=== PATIENT | female | born 1985 | race Caucasian/White ===

== ENCOUNTER 2016-09-08 02:53 | Inpatient (IN) | payer OTHER ==
--- NOTE | ~2016-09-08 | PN ---
Unit #: [id number] #: [id number] Patient: PARTH FERREIRA [id number] [facility] [address] [place] [address] [id number] MR#: [id number] NAME: PARTH FERREIRA. ROOM: 13 Age: 30 Sex: F Admission Date: 09/08/2016 : 1985 Attending Physician: Cricket Loera M.D. Admitting Physician: Cricket Loera M.D. Primary Care Physician: Primary Care Physician Yana COTA PROGRESS NOTES DATE 09/11/2016 DISCUSSION The patient continues to complain of racing thoughts but states that she is a bit sedated with initiation of Seroquel. We will leave her dose at its current level allowing the patient to acclimate to sedative side effects and hope to titrate upward as she continues to complain of racing thoughts and severe anxiety as well as her psychosis appears to have cleared at this point but there still seems evidence with regards to racing thoughts of a bipolar manic episode. Dictated by... Cricket Loera M.D. CB/abdon TD: 09/12/2016 03:22 JOB #: [id number] BEATA PROGRESS NOTES Page 1 of 1 X Cricket Loera MD PROGRESS NOTE
--- NOTE | ~2016-09-08 | PN ---
Unit #: [id number] #: [id number] Patient: PARTH FERREIRA [id number] [facility] [address] [place] [address] [id number] MR#: [id number] NAME: PARTH FERREIRA. ROOM: P113 Age: 30 Sex: F Admission Date: 09/08/2016 : 1985 Attending Physician: Cricket Loera M.D. Admitting Physician: Cricket Loera M.D. Primary Care Physician: Primary Care Physician Yana COTA PROGRESS NOTES DATE 09/10/2016 DISCUSSION The patient continues to complain of severe anxiety. It is my concern now that the patient's symptoms may not be entirely related to her methamphetamine abuse and I will go ahead and start the patient on Seroquel 50 mg t.i.d. Dictated by... Cricket Loera M.D. CB/chanel TD: 09/10/2016 15:31 JOB #: [id number] BEATA PROGRESS NOTES Page 1 of 1 X Cricket Loera MD X PROGRESS NOTE
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
--- NOTE | ~2016-09-08 | HP ---
Unit #: [id number] #: [id number] Patient: CONSTANCE FERREIRA [id number] [place] [address] [id number] I MR#: [id number] NAME: CONSTANCE FERREIRA. ROOM: P113 Age: 30 Sex: F Admission Date: 09/08/2016 : 1985 Attending Physician: Cricket Loera M.D. Admitting Physician: Cricket Loera M.D. Primary Care Physician: Primary Care Physician No HISTORY AND PHYSICAL HISTORY OF PRESENT ILLNESS Constance is a 30 year old admitted to [address] [place] [address] with psychotic behavior. PAST MEDICAL HISTORY 1. Obesity. 2. Hyperthyroidism. a. Partial thyroidectomy. PAST SURGICAL HISTORY As above. ALLERGIES Sulfa. SOCIAL HISTORY Smokes 2 pack per day. Denies alcohol. Admits to a history of illicit substance abuse to include methamphetamine, heroin and history of abusing benzodiazepines. FAMILY HISTORY Medically noncontributory. REVIEW OF SYSTEMS She does not answer all questions appropriately. There were no reports of nausea, vomiting or diarrhea. She has had no cough or increased temperature. CURRENT MEDICATIONS 1. Zyprexa Zydis 10 mg q. 8 hours p.r.n. 2. Vistaril 50 mg q.i.d. 3. Nicotine patch 21 mg daily. 4. Milk of Magnesia p.r.n. 5. Maalox p.r.n. 6. Tylenol p.r.n. PHYSICAL EXAMINATION GENERAL: Alert, well-nourished, in no apparent distress. VITAL SIGNS: Blood pressure 118/84, heart rate 88, respirations 16, temperature 98.6. SKIN: Warm and dry without rash or lesion. HEENT: Normocephalic. TMs not viewed. Oral and nasal passages clear. Conjunctivae clear. PERRLA. EOMs intact. NECK: Supple without lymphadenopathy or thyromegaly. Unit #: [id number] #: [id number] Patient: CONSTANCE FERREIRA HEART: Regular rate and rhythm without murmur. LUNGS: Clear. ABDOMEN: Soft, nontender. : Not done. EXTREMITIES: No evidence of cyanosis, clubbing or edema. Moves all without focal deficit. NEUROLOGICAL: Unable to complete extended exam. She does move all extremities without focal deficit. Hand neighborhood planner is equal and gait is normal. IMPRESSION Psychiatric admission. RECOMMENDATIONS PSYCHIATRIC: Per psychiatrist. MEDICAL: See no contraindication to participate in facility's activities. MEDICAL PROGNOSIS Good. MEDICAL CONDITION Stable. Dictated by... Eliz Evangelista P.A.-C. for Cornelio Matute/chanel TD: 09/08/2016 21:39 JOB #: [id number] HISTORY AND PHYSICAL Page 1 of 1 X Eliz Evangelista X HISTORY AND PHYSICAL
--- NOTE | ~2016-09-08 | PN ---
Unit #: [id number] #: [id number] Patient: PARTH FERREIRA [id number] [facility] [address] [place] [address] [id number] MR#: [id number] NAME: PARTH FERREIRA. ROOM: 13 Age: 30 Sex: F Admission Date: 09/08/2016 : 1985 Attending Physician: Cricket Loera M.D. Admitting Physician: Cricket Loera M.D. Primary Care Physician: Primary Care Physician Yana COTA PROGRESS NOTES DATE 09/09/2016 DISCUSSION The patient was briefly transferred to the [facility] unit but became paranoid and angry and threw a container of Gatorade prompting her return to this facility in seclusion and restraint and p.r.n. medication. Patient remains paranoid and anxious when seen today. At this point, I continue to feel as though her symptoms are methamphetamine induced and will continue with only p.r.n. Zydis at this point as the patient is voicing no overt psychotic symptoms today. Dictated by... Cricket Loera M.D. CB/chanel TD: 09/09/2016 15:06 JOB #: [id number] BEATA PROGRESS NOTES Page 1 of 1 X Cricket Loera MD PROGRESS NOTE
--- NOTE | ~2016-09-08 | DS ---
Unit #: [id number] #: [id number] Patient: PARTH FERREIRA [id number] [facility] [address] [place] [address] [id number] I MR#: [id number] NAME: PARTH FERREIRA. ROOM: [facility] Age: 30 Sex: F Admission Date: 09/08/2016 : 1985 Discharge Date: 09/12/2016 Attending Physician: Cricket Loera M.D. Primary Care Physician: Primary Care Physician No DISCHARGE SUMMARY REASON FOR ADMISSION The patient is a 30-year-old white female, admitted in what appears to have been a stimulant-induced psychosis. HOSPITAL COURSE The patient was admitted to the [address] [place] [address] unit and placed on suicide precautions. She required several doses of p.r.n. Geodon initially during her stay in the hospital, but calmed considerably. An attempted transfer to the [address] [place] [address] unit to address the patient's substance use issues was unsuccessful as the patient became angry and threw a cooler of Gatorade there. On 09/10/2016, the patient seen to be sustaining complaints of anxiety and racing thoughts which were thought possibly not to be entirely related to her methamphetamine use history. Accordingly, she was begun on Seroquel 50 mg t.i.d. and tolerated this medication well. On 09/11/2016, she appeared to improve and on 09/12/2016, she requested discharge as the patient had been accepted for treatment at [facility] in [place], [place] the following day and as per her request, discharge was ordered. FINAL DIAGNOSIS Psychostimulant use disorder with intoxication and perceptual disturbance. DISPOSITION ON DISCHARGE The patient is discharged on the following medications; Seroquel 50 mg t.i.d. for psychosis. DISCHARGE INSTRUCTIONS No dietary or physical restrictions were placed on the patient at the time of discharge. FOLLOWUP She will follow up through the auspices of [facility] in [place], [place]. PROGNOSIS Her prognosis is considered fair. Dictated by... Cricket Loera M.D. HAYDEE/mckennal TD: 09/13/2016 02:59 Unit #: [id number] #: [id number] Patient: PARTH FERREIRA JOB #: [id number] DISCHARGE SUMMARY Page 1 of 1 X Cricket Loera MD DISCHARGE SUMMARY
[2016-09-08 10:01] LABS: BASOPHIL% 0.4 % (0-2.5); EOSINOPHIL# 0.1 X10e3 (0-0.7); EOSINOPHIL% 1.5 % (0.0-7.0); HEMATOCRIT 46.1 % (35.0-45.0); LYMPHOCYTE# 4.8 X10e3 (1.0-3.5); LYMPHOCYTE% 48.6 % (17.0-45.0); MEAN CELL VOLUME 91.9 FL (83-96); MEAN CORPUSCULAR HGB CONC 32.6 g/dL (30-36); MONOCYTE# 0.6 X10e3 (0-1.0); MONOCYTE% 6.2 % (3.0-12.0); NEUTROPHIL# 4.2 X10e3 (1.5-7.1); NEUTROPHIL% 43.3 % (40-75); PLATELET COUNT 233 X10e3 (140-420); RED BLOOD COUNT 5.02 X10e (3.90-5.30); RED CELL DISTRIBUTION WIDTH 13.1 % (11.0-15.5); WHITE BLOOD COUNT 9.8 X10e3 (4.0-10.5)
[2016-09-08 10:08] LABS: DIFF IND NO
[2016-09-08 10:31] LABS: THYROID STIMULATING HORMONE 1.38 uIU/ml (0.34-5.60)
[2016-09-08 10:38] LABS: FREE THYROXIN (T4) 0.99 ng/dL (0.58-1.64)
[2016-09-08 10:49] LABS: ALBUMIN SERUM 4.4 g/dL (3.5-5.0); BILIRUBIN,TOTAL 0.4 mg/dL (0.2-2.0); CALCIUM SERUM 9.5 mg/dL (8.4-10.2); CREATININE SERUM 0.5 mg/dL (0.6-1.4); GLOM FILT RATE Estimated 130.8 mL/min (>60); PROTEIN TOTAL SERUM 6.7 g/dL (6.0-8.3)
[2016-09-14 11:03] LABS: HA AB IGM (HEPPAN) Nonreactive (()); HB CORE AB IGM (HEPPAN) Nonreactive (Nonreactive); HB S AG (HEPPAN) Nonreactive (Nonreactive); HEP C AB (HEPPAN) Reactive (Nonreactive)
== END 2016-09-12 15:04 | disposition home or self-care (01) | DRG 897 ==
LOC: P1S 02:53 → P2S 15:15 → P1S 17:11
PROVIDERS: Specialist
DX: F15.222 Other stimulant dependence with intoxication with perceptual disturbance (principal); F11.10 Opioid abuse, uncomplicated; E05.90 Thyrotoxicosis, unspecified without thyrotoxic crisis or storm; Z59.0 Homelessness; E66.9 Obesity, unspecified; F17.210 Nicotine dependence, cigarettes, uncomplicated; Z88.2 Allergy status to sulfonamides; F41.9 Anxiety disorder, unspecified
CPT/HCPCS: 80053; 80074; 84439; 84443; 84703; 85025; 87522; 87806; J3486

== ENCOUNTER 2016-11-07 15:40 | Inpatient (IN) | payer OTHER ==
--- NOTE | ~2016-11-07 | HP ---
Unit #: [id number] #: [id number] Patient: CONSTANCE FERREIRA [id number] [place] [address] [id number] I MR#: [id number] NAME: CONSTANCE FERREIRA. ROOM: P203 Age: 30 Sex: F Admission Date: 11/07/2016 : 1985 Attending Physician: Cricket Loera M.D. Admitting Physician: Cricket Loera M.D. Primary Care Physician: Primary Care Physician No HISTORY AND PHYSICAL HISTORY OF PRESENT ILLNESS Constance is a 30 year old admitted to [address] [place] [address] because of her polysubstance abuse which includes IV heroin and methamphetamine. PAST MEDICAL HISTORY 1. Long history of polysubstance abuse to include IV drugs 2. Hepatitis C PAST SURGICAL HISTORY 1. T & A 2. Partial thyroidectomy ALLERGIES Sulfa SOCIAL HISTORY Smokes one pack per day. Drinks alcohol rarely, admits to a history of poly illicit substance abuse to include IV heroin and methamphetamine. FAMILY HISTORY Medically noncontributory. REVIEW OF SYSTEMS CONSTITUTIONAL: No fever or chills. HEENT: Denies any sore throat, ear pain or runny nose. CARDIOVASCULAR: Denies chest pain, irregular heart rhythm or palpitations. CHEST: Denies shortness of breath or cough. No hemoptysis. GASTROINTESTINAL: Denies nausea, vomiting, diarrhea or chronic constipation. ENDOCRINE: Denies history of increased thirst or urination. No recent significant weight loss or gain. GENITOURINARY: Denies dysuria, frequency, or hematuria. SKIN: Denies any rashes. HEMATOLOGIC: Denies history of increased bleeding or bruising. MUSCULOSKELETAL: Denies any hot, swollen joints. No generalized muscle pain. NEUROLOGIC: Denies problems with vision or speech. No frequent, severe headaches. No numbness, tingling or weakness in any extremities. Denies loss of bladder or bowel control. CURRENT MEDICATIONS 1. Geodon 40 mg b.i.d. Unit #: [id number] #: [id number] Patient: CONSTANCE FERREIRA 2. Nicotine patch 21 mg q day 3. Milk of Magnesia p.r.n. 4. Maalox p.r.n. 5. Tylenol p.r.n. PHYSICAL EXAMINATION GENERAL: Alert, well-nourished, in no apparent distress. VITAL SIGNS: Blood pressure 113/74, heart rate 96, respirations 16, temperature 98.6. WEIGHT: 130 pounds. HEIGHT: 5'2". SKIN: Warm and dry without rash or lesion. HEENT: Normocephalic. TMs not viewed. Oral and nasal passages clear. Conjunctivae clear. Pupils equal, round and reactive to light and accommodation. Extraocular movements intact. NECK: Supple without lymphadenopathy or thyromegaly. HEART: Regular rate and rhythm without murmur. LUNGS: Clear. ABDOMEN: Soft, nontender. : Not done. EXTREMITIES: No evidence of cyanosis, clubbing or edema. Moves all extremities without focal deficit. NEUROLOGICAL: Grossly within normal limits. Cranial Nerves: II: Visual cantu are intact. III, IV AND : Extraocular movements are intact. Pupils are equal, round and reactive to light. V: Facial sensation is grossly normal. VII: Facial movements and expression are normal. VIII: Auditory acuity grossly intact. IX, X: Uvula is midline. Phonation is normal. XI: Patient shrugs shoulders and turns head normally. XII: Tongue protrudes in the midline. Sensory and Motor Function: Sensory and motor sensation is grossly normal. Motor: moves all extremities well. Coordination: Gait is normal. Deep Tendon Reflexes: Intact. IMPRESSION Psychiatric admission RECOMMENDATIONS PSYCHIATRIC: Per psychiatrist. MEDICAL: I see no contraindications to participating in facility's activities. MEDICAL PROGNOSIS Good. MEDICAL CONDITION Stable. Dictated by... Eliz Evangelista P.A.-C. for Cornelio Matute/abdon Unit #: [id number] #: [id number] Patient: CONSTANCE FERREIRA TD: 11/08/2016 21:05 JOB #: [id number] HISTORY AND PHYSICAL Page 1 of 1 X Eliz Evangelista HISTORY AND PHYSICAL
--- NOTE | ~2016-11-07 | PN ---
Unit #: [id number] #: [id number] Patient: PARTH FERREIRA [id number] [facility] [address] [place] [address] [id number] MR#: [id number] NAME: PARTH FERREIRA. ROOM: P205 Age: 30 Sex: F Admission Date: 11/07/2016 : 1985 Attending Physician: Cricket Loera M.D. Admitting Physician: Cricket Loera M.D. Primary Care Physician: Primary Care Physician Yana COTA PROGRESS NOTES DATE 11/10/2016 DISCUSSION The patient reports some improvement in her auditory hallucinations and seems brighter today. It would appear that with the rapidity of resolution of symptoms we are seeing that her symptoms were likely methamphetamine induced. Dictated by... Cricket Loera M.D. CB/chanel TD: 11/10/2016 16:42 JOB #: [id number] [facility] PROGRESS NOTES Page 1 of 1 X Cricket Loera MD X PROGRESS NOTE
--- NOTE | ~2016-11-07 | DS ---
Unit #: [id number] #: [id number] Patient: PARTH FERREIRA [id number] [facility] [address] [place] [address] [id number] MR#: [id number] NAME: PARTH FERREIRA. ROOM: [facility] Age: 30 Sex: F Admission Date: 11/07/2016 : 1985 Discharge Date: 11/11/2016 Attending Physician: Cricket Loera M.D. Primary Care Physician: Primary Care Physician No DISCHARGE SUMMARY REASON FOR ADMISSION The patient is a 30-year-old white female, admitted to the [address] [place] [address] unit with increasing paranoia related to a history of methamphetamine abuse. HOSPITAL COURSE The patient was admitted to the [facility] and placed on suicide precautions. She was begun on Seroquel with dosage increased to 100 mg t.i.d. daily. Levothyroxine was also continued. The patient's symptoms resolved rather rapidly and by 11/11/2016, the patient was in bright spirits with no recurrence of psychotic symptoms. The importance of abstinence from methamphetamines was discussed with the patient. FINAL DIAGNOSES Methamphetamine use disorder with intoxication and delusions, resolved. DISPOSITION ON DISCHARGE The patient is discharged on the following medications: Seroquel 100 mg t.i.d. for mood stabilization. DISCHARGE INSTRUCTIONS No dietary or physical restrictions were placed upon the patient at the time of discharge. FOLLOWUP Followup will take place in the intensive outpatient program provided by this facility. PROGNOSIS The patient's prognosis is considered fair. Dictated by... Cricket Loera M.D. CB/ubaldo TD: 11/11/2016 19:31 JOB #: [id number] Unit #: [id number] #: [id number] Patient: PARTH FERREIRA DISCHARGE SUMMARY Page 1 of 1 X Cricket Loera MD X DISCHARGE SUMMARY
--- NOTE | ~2016-11-07 | PN ---
Unit #: [id number] #: [id number] Patient: PARTH FERREIRA [id number] [facility] [address] [place] [address] [id number] MR#: [id number] NAME: PARTH FERREIRA. ROOM: P203 Age: 30 Sex: F Admission Date: 11/07/2016 : 1985 Attending Physician: Cricket Loera M.D. Admitting Physician: Cricket Loera M.D. Primary Care Physician: Primary Care Physician Yana COTA PROGRESS NOTES DATE 11/09/2016 DISCUSSION The patient has required p.r.n. Thorazine this morning and continuing to complain of severe anxiety, depression and psychotic symptoms. She may in fact be in a manic phase of bipolar. Otherwise, continues to suspect that most of her symptoms are methamphetamine related. I will, however, restart the patient's Seroquel as per her request with a significant dosage increase to 100 mg t.i.d. Dictated by... Cricket Loera M.D. HAYDEE/chanel TD: 11/09/2016 15:05 JOB #: [id number] BEATA PROGRESS NOTES Page 1 of 1 X Cricket Loera MD PROGRESS NOTE
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
[2016-11-08 09:35] LABS: BASOPHIL# 0.1 X10e3 (0-0.3); BASOPHIL% 0.7 % (0-2.5); EOSINOPHIL# 0.3 X10e3 (0-0.7); EOSINOPHIL% 2.6 % (0.0-7.0); HEMATOCRIT 43.6 % (35.0-45.0); HEMOGLOBIN 14.4 gm/dL (12.0-16.0); LYMPHOCYTE# 4.4 X10e3 (1.0-3.5); LYMPHOCYTE% 38.7 % (17.0-45.0); MEAN CELL VOLUME 87.8 FL (83-96); MEAN PLATELET VOLUME 8.8 FL (6.5-11.5); MONOCYTE# 0.9 X10e3 (0-1.0); NEUTROPHIL# 5.7 X10e3 (1.5-7.1); PLATELET COUNT 316 X10e3 (140-420); RED BLOOD COUNT 4.96 X10e (3.90-5.30); RED CELL DISTRIBUTION WIDTH 13.1 % (11.0-15.5); WHITE BLOOD COUNT 11.4 X10e3 (4.0-10.5)
[2016-11-08 09:48] LABS: DIFF IND NO
[2016-11-08 10:59] LABS: ALBUMIN SERUM 3.8 g/dL (3.5-5.0); BILIRUBIN,TOTAL 0.6 mg/dL (0.2-2.0); CALCIUM SERUM 9.1 mg/dL (8.4-10.2); CREATININE SERUM 0.7 mg/dL (0.6-1.4); GLOM FILT RATE Estimated 117.1 mL/min (>60); POTASSIUM 3.8 mmol/L (3.5-5.1)
[2016-11-08 14:42] LABS: URINE APPEARANCE TURBID; URINE BILIRUBIN NEG (NEG); URINE BLOOD TRACE (NEG); URINE COLOR YELLOW; URINE GLUCOSE NEG (NEG); URINE KETONE NEG (NEG); URINE LEUKOCYTE ESTERASE 3+ (NEG); URINE NITRATE NEG (NEG); URINE PROTEIN NEG (NEG)
[2016-11-08 14:44] LABS: AMPHETAMINE POS (NEG); BARBITURATES NEG (NEG); BENZODIAZEPINES POS (NEG); COCAINE POS (NEG); MARIJUANA POS (NEG); OPIATES NEG (NEG); TRICYCLIC ANTIDEPRESSANTS NEG (NEG); U METHADONE NEG (NEG)
[2016-11-08 14:46] LABS: URBCS1 AUWI 0-2 /[HPF] (0-2); URINE BACTERIA AUWI 4+ (NEGATIVE); URINE SQUAMOUS EPITHELIAL CELL MANY /[HPF]; UWBCS1 AUWI 200-300 (0-5)
[2016-11-08 16:26] LABS: THYROID STIMULATING HORMONE 1.21 uIU/ml (0.34-5.60)
[2016-11-08 16:33] LABS: FREE THYROXIN (T4) 0.99 ng/dL (0.58-1.64)
== END 2016-11-11 14:30 | disposition home or self-care (01) | DRG 897 ==
LOC: P2L 19:32 → P2S 19:32
PROVIDERS: Psychiatry & Neurology Psychiatry
DX: F15.222 Other stimulant dependence with intoxication with perceptual disturbance (principal); F11.10 Opioid abuse, uncomplicated; R45.851 Suicidal ideations; B19.20 Unspecified viral hepatitis C without hepatic coma; Z59.0 Homelessness; F17.210 Nicotine dependence, cigarettes, uncomplicated; Z88.2 Allergy status to sulfonamides; F41.9 Anxiety disorder, unspecified
CPT/HCPCS: 80053; 80307; 81003; 84439; 84443; 84703; 85025

== ENCOUNTER 2016-11-16 18:00 | Inpatient (IN) | payer OTHER ==
--- NOTE | ~2016-11-16 | CO ---
Unit #: [id number] #: [id number] Patient: PARTH FERREIRA [id number] [place] [address] [id number] I MR#: [id number] NAME: PARTH FERREIRA. ROOM: P125 Age: 30 Sex: F Admission Date: 11/16/2016 : 1985 Attending Physician: Cricket Loera M.D. Primary Care Physician: Primary Care Physician No Consultation Date: 11/17/2016 CONSULTATION REPORT DESIREE Nolasco is a 30-year-old with an abnormal urinalysis on admission. She had no complaints of urgency, frequency, or dysuria. There have been no recorded increased temperatures. Urinalysis showed 4+ bacteria. She was started on Cipro 500 mg one p.o. b.i.d. x3 days. Dictated by... Eliz Evangelista P.A.-C. for Cornelio Matute/ubaldo TD: 11/18/2016 21:58 JOB #: [id number] CONSULTATION REPORT Page 1 of 1 X Eliz Evangelista CONSULTATION REPORT
--- NOTE | ~2016-11-16 | HP ---
Unit #: [id number] #: [id number] Patient: CONSTANCE FERREIRA [id number] [place] [address] [id number] I MR#: [id number] NAME: CONSTANCE FERREIRA. ROOM: P125 Age: 30 Sex: F Admission Date: 11/16/2016 : 1985 Attending Physician: Cricket Loera M.D. Admitting Physician: Cricket Loera M.D. Primary Care Physician: Primary Care Physician No HISTORY AND PHYSICAL HISTORY OF PRESENT ILLNESS Constance is a 30 year old admitted to [address] [place] [address] because of her polysubstance abuse. She was just discharged from this facility. The patient was seen and history and physical dated was reviewed. This is current. No changes. Please see history and physical dated 11/08/2016. Dictated by... Eliz Evangelista P.A.-C. for Cornelio Matute/abdon TD: 11/17/2016 20:58 JOB #: [id number] HISTORY AND PHYSICAL Page 1 of 1 X Eliz Evangelista HISTORY AND PHYSICAL
--- NOTE | ~2016-11-16 | PA ---
Unit #: [id number] #: [id number] Patient: PARTH FERREIRA [id number] [place] [address] [id number] MR#: [id number] NAME: PARTH FERREIRA. ROOM: [facility] Age: 30 Sex: F Admission Date: 11/16/2016 : 1985 Date of Assessment: 11/17/2016 Attending Physician: Cricket Loera M.D. Admitting Physician: Cricket Loera M.D. Primary Care Physician: Primary Care Physician No PSYCHIATRIC ASSESSMENT IDENTIFYING INFORMATION The patient is a 30-year-old white female, admitted reporting increased anxiety and paranoia. INFORMANT(S) Patient and chart, reliability is fair. CHIEF COMPLAINT None given. HISTORY OF PRESENT ILLNESS The patient is a 30-year-old white female, readmitted to the hospital after she had presented to this facility voicing positive paranoia and thoughts of suicide with plan to overdose on heroin. The patient has a recent hospitalization at this facility and was discharged on Seroquel 100 mg three times daily, but was the feeling of this physician that most of her symptoms of paranoia were related to her admitted use of methamphetamine. The patient, at this point, claims that she has not used methamphetamine outside the hospital stating "I only used heroin one." The patient is continuing to endorse positive suicidal ideation as well as racing thoughts and anxiety. For a more complete history of present illness please refer to previously dictated notes. PAST PSYCHIATRIC HISTORY Reviewed and no changes. PAST MEDICAL HISTORY Reviewed and no changes. MEDICATIONS Seroquel. ALLERGIES Sulfa. FAMILY HISTORY Reviewed and no changes. SOCIAL HISTORY Reviewed and no changes. MENTAL STATUS EXAM At this time reveals the patient to be a well-developed, well-nourished Unit #: [id number] #: [id number] Patient: PARTH FERREIRA white female appearing her stated age. She is in no apparent physical distress at the time of the examination. She is awake, alert, and oriented in all spheres. Her mood is dysphoric. Her affect blunted. Speech is generally relevant and coherent. There are no gross deficits to memory or cognition noted. Intelligence is judged to be in the average range based on fund of knowledge. The patient is cooperative throughout the interview. She continues to endorse positive suicidal ideation. She denies homicidal ideation. She reports positive paranoia. Judgment and insight appear to be significantly impaired. ASSETS To be assessed. LIABILITIES Ongoing substance use. DIAGNOSTIC IMPRESSION Jackson I: Methamphetamine use disorder by history. Psychotic disorder, unspecified. Possible bipolar disorder, mixed phase. TREATMENT PLAN The patient remains hospitalized for safety and stabilization, I will begin upward titration of Seroquel and increase the patient's total daytime dose to 400 mg divided into two 200 mg doses. The patient will participate in appropriate [place] and milieu activities. We will look for urine drug screen as the patient's claims of abstinence outside the hospital seem less than optimally credible. Dictated by... Cricket Loera M.D. HAYDEE/kasandra TD: 11/17/2016 12:50 JOB #: [id number] PSYCHIATRIC ASSESSMENT Page 1 of 1 X Cricket Loera MD X PSYCHIATRIC ASSESSMENT
--- NOTE | ~2016-11-16 | DS ---
Unit #: [id number] #: [id number] Patient: PARTH FERREIRA [id number] [facility] [address] [place] [address] [id number] MR#: [id number] NAME: PARTH FERREIRA. ROOM: P125 Age: 30 Sex: F Admission Date: 11/16/2016 : 1985 Discharge Date: 11/18/2016 Attending Physician: Cricket Loera M.D. Primary Care Physician: Primary Care Physician No DISCHARGE SUMMARY REASON FOR ADMISSION The patient is a 30-year-old single white female, admitted to the [address] [place] [address] unit with recurrence of paranoia. HOSPITAL COURSE The patient was admitted to the [address] [place] [address] and placed on suicide precautions. Seroquel was increased from 300 mg daily to 200 mg b.i.d. The patient tolerated the medication change without complaint. The patient reported only vague symptoms of paranoia and by 11/18/2016, was denying any psychotic thinking. While she denied abuse of methamphetamine outside the hospital, she did admit to abuse of heroin and unfortunately, this physician did not have access to a urine drug screen at that time during the patient's hospitalization. By 11/18/2016, the patient's paranoia had resolved and she denied any suicidal or homicidal ideation, and denied psychotic symptoms. She was tolerating the medication change without complaint and was discharged. It was recommended the patient to follow up through the auspices of the intensive outpatient program provided by this facility to address her ongoing substance abuse issues. DIAGNOSTIC IMPRESSION Psychotic disorder, unspecified; methamphetamine use disorder; opioid use disorder. DISPOSITION ON DISCHARGE The patient is discharged on the following medications: Seroquel 200 mg b.i.d. for psychosis. DISCHARGE INSTRUCTIONS No dietary or physical restrictions were placed upon the patient at the time of discharge. FOLLOWUP Followup will take place through the auspices of community mental health resources and the chemical dependency intensive outpatient program provided by this facility. PROGNOSIS The patient's prognosis is considered fair. Dictated by... Cricket Loera M.D. Unit #: [id number] #: [id number] Patient: PARTH FERREIRA CB/modl TD: 11/18/2016 13:50 JOB #: [id number] DISCHARGE SUMMARY Page 1 of 1 X Cricket Loera MD X DISCHARGE SUMMARY
== END 2016-11-18 13:05 | DRG 885 ==
LOC: P1S 19:34
DX: F23 Brief psychotic disorder (principal); R45.851 Suicidal ideations; R82.90 Unspecified abnormal findings in urine; F15.10 Other stimulant abuse, uncomplicated; F11.10 Opioid abuse, uncomplicated